=== PATIENT | female | born 1985 | race Caucasian/White ===

== ENCOUNTER → 2021-10-08 | Day surgery (SDC) | payer MEDICAID ==
[2021-10-05 11:19] LABS: BASOPHILS % (AUTO) 0.7 % (0-1); EOSINOPHILS # (AUTO) 0.1 X10'3 (0-0.9); EOSINOPHILS % (AUTO) 1.3 % (0-6); LYMPHOCYTES # (AUTO) 1.3 X10'3 (1.1-4.8); LYMPHOCYTES % (AUTO) 26.7 % (21-51); MEAN CORPUSCULAR HEMOGLOBIN 30.3 PG (27.0-31.0); MEAN CORPUSCULAR HGB CONC 34.1 g/dL (33.0-36.5); MEAN CORPUSCULAR VOLUME 88.9 FL (78-98); MEAN PLATELET VOLUME 7.3 FL (7.4-10.4); MONOCYTES # (AUTO) 0.3 X10'3 (0-0.9); NEUTROPHILS # (AUTO) 3.1 X10'3 (1.8-7.7); NEUTROPHILS % (AUTO) 64.3 % (42-75); PRE OP HEMATOCRIT 40.4 % (35.0-45.0); PRE OP HEMOGLOBIN 13.8 g/dL (12.0-16.0); PRE OP PLATELET COUNT 277 X10'3 (140-440); RED BLOOD COUNT 4.54 X10'6 (4.20-5.60); RED CELL DISTRIBUTION WIDTH 12.9 % (11.5-14.5)
[2021-10-05 11:36] LABS: ALBUMIN/GLOBULIN RATIO 1.1 (1.1-1.5); ALKALINE PHOSPHATASE 77 IU/L (46-116); BLOOD UREA NITROGEN 13 MG/DL (7-18); BUN/CREATININE RATIO 20.3 (6.6-38.0); CALCIUM 8.7 MG/DL (8.5-10.1); CHLORIDE 105 MMOL/L (99-107); CREATININE 0.64 MG/DL (0.40-0.90); PRE OP ALT 26 U/L (30-65); PRE OP ANION GAP 7 (8-16); PRE OP AST 15 U/L (10-37); PRE OP BILIRUB, TOTAL 0.4 MG/DL (0.0-1.0); PRE OP GLUCOSE 88 MG/DL (70-104); PRE OP POTASSIUM 4.2 MMOL/L (3.4-5.1); PRE OP SODIUM 140 MMOL/L (135-145); TOTAL CARBON DIOXIDE 27.6 MMOL/L (24-32); TOTAL PROTEIN 7.8 G/DL (6.4-8.2); eGFR > 90 ML/MIN
[2021-10-05 11:48] LABS: HCG SERUM QL NEGATIVE
[~2021-10-08] VITALS: Ht 160 cm; Wt 67.9 kg
[~2021-10-08] MED LIST: BUPIVAcaine/PF 2.5mg/ml (0.25%) 10ml vial IJ ONE; NO HOME MEDS; acetaminophen 1,000mg/100ml IV 100 ML IV ONE; dexamethasone sod phosphate 4mg/ml inj. ONE; famotidine 20mg tablet PO ONE; fentaNYL/PF 50MCG/1 ML 2ML syringe ONE; meperidine/PF 25mg/ml syringe IV PRN; midazolam 1 mg/ML 2ml injection IV ONE; midazolam 1 mg/ML 2ml injection ONE; morphine 2 MG/ML inj. syringe IV PRN; morphine 4 MG/ML inj SYRINge IV PRN; ondansetron/PF 4mg/2ml inj IV PRN; ondansetron/PF 4mg/2ml inj ONE; oxyCODONE/APAP 5-325mg tablet PO ONE; proCHLORperazine 10 MG/2 ml inj IV PRN; propofol inj 20 ML IV ONE; ringers solution, lacted 1,000 ML IV SCH; rocuronium 10mg/ml inj IV ONE; sevoflurane 250ml liquid IH ONE; sugammadex 200mg/2ml injection IV ONE
[2021-10-08 10:50] VITALS: BP 112/73
[2021-10-08 16:38] VITALS: BP 119/77
--- NOTE | 2021-10-08 16:38 | NUR ---
Received from OR via [facility], accompanied by Anesthesiologist AVA and report given by Anesthesiolgist. PATIENT WITH 20G PIV IN LEFT UE RUNNING LR AT 100. DENIES PAIN AT THIS TIME. MELISSA PAD IN PLACE AND IS CDI. Addendum: 10/08/21 at 1647 by Hilario Almanza RN, RN Amended: Links added.
[2021-10-08 16:40] VITALS: BP 119/77
[2021-10-08 16:50] VITALS: BP 112/69
[2021-10-08 17:00] VITALS: BP 116/76
[2021-10-08 17:10] VITALS: BP 110/72
--- NOTE | 2021-10-08 17:43 | NUR ---
ADDENDUM. 03/07 DOSE OF PERCOCET 5 GIVEN AND ADMINISTERED PER PATIENT REQUEST. PATIENT TAKEN OUT VIA WHEELCHAIR. ALL DISCHARGE CRITERIA HAS BEEN MET. VSS, PAIN AT A TOLERABLE LEVEL, ABLE TO SAFELY AMBULATE AND TRANSFER SELF. IV TAKEN OUT WITHOUT ANY COMPLICATIONS. ALL DISCHARGE INSTRUCTIONS COVERED WITH PATIENT AND ALL QUESTIONS ANSWERED. PATIENT TAKEN OUT VIA WHEELCHAIR TO PERSONAL VEHICLE WHERE SPOUSE MORIS DROVE PATIENT HOME. Addendum: 10/08/21 at 1749 by Hilario Trujillo - MARC TRAN Amended: Links added.
== END | disposition home or self-care (01) ==
LOC: PAS 10:39
PROVIDERS: ATTEND Obstetrics & Gynecology
DX: Z30.2 Encounter for sterilization (principal); Z79.899 Other long term (current) drug therapy; Z87.891 Personal history of nicotine dependence; Z98.890 Other specified postprocedural states
CPT/HCPCS: 36415; 58661; 80053; 84703; 85025; 86885; 86900; 86901; 87811; J0131; J1100; J2250; J2405; J2704; J3010; J3490; J7030; J7120; Z7506; Z7512; A4338; A4615; A4618